=== PATIENT | male | born 1980 | race Two or more races ===

== ENCOUNTER 2023-03-28 23:56 | Emergency (ER) | payer SELFPAY ==
[~2023-03-28] VITALS: Ht 165.1 cm; Wt 72.7 kg
[2023-03-29 00:08] VITALS: TEMP 98.5
[2023-03-29] MEDS ORDERED: PERTUSS(ACELL),DIPH,TET VAC/PF 0.5 ML SYRINGE IM. ONE (01:00)
[2023-03-29] MEDS ORDERED: ACETAMINOPHEN 500 MG TABLET PO ONE (01:00)
[2023-03-29 03:06] VITALS: BP 130/72; PULSE 73; RESP 17
== END 2023-03-29 06:21 | disposition short-term general hospital (02) ==
LOC: EMS 23:57
DX: S01.511A Laceration without foreign body of lip, initial encounter (principal); W19.XXXA Unspecified fall, initial encounter; Y93.89 Activity, other specified; Y92.89 Other specified places as the place of occurrence of the external cause; Y99.8 Other external cause status
CPT/HCPCS: 90471; 90715; 99285